=== PATIENT | male | born 1980 | race Caucasian/White ===

== ENCOUNTER 2018-05-28 18:59 | Emergency (ER) | payer BC ==
[~2018-05-28] VITALS: Ht 170.2 cm; Wt 89.0 kg
[2018-05-28 18:59] VITALS: BP 119/65
--- NOTE | 2018-05-28 19:01 | ED.ADGEN ---
Adult General Chief Complaint Chief Complaint ".. I was doing yard work.. and tripped on some concrete wire.. and it poked into my hand..." HPI HPI Patient is a 38 year old male who presents with above hx and complaints puncture wound to Rt. palm. Patient denies any neurovascular changes in his hand. Patient had good drama teacher. Site of puncture somewhat tender. Patient is right-hand dominant. Patient denies any history of immunosuppression, specific ill contacts or travel. Patient does not remember his last tetanus vaccination. Chon Test was intact. Review of Systems Review of Systems Constitutional: Denies fever or chills [] Eyes: Denies change in visual acuity, redness, or eye pain [] HENT: Denies nasal congestion or sore throat [] Respiratory: Denies cough or shortness of breath [] Cardiovascular: No additional information not addressed in HPI [] GI: Denies abdominal pain, nausea, vomiting, bloody stools or diarrhea [] : Denies dysuria or hematuria [] Musculoskeletal: Denies back pain or joint pain [] Integument: Denies rash or skin lesions []complaints of puncture wound. Neurologic: Denies headache, focal weakness or sensory changes [] Endocrine: Denies polyuria or polydipsia [] All other systems were reviewed and found to be within normal limits, except as documented in this note. Family History Family History Noncontributory Current Medications Current Medications Current Medications Medications (Trade) Dose Ordered Sig/[facility] Start Time Stop Time Status Last Admin Dose Admin Tetanus/ Diphtheria Toxoids Adsorbed (Tenivac Vial) 0.5 ml ONCE ONCE 05/28/18 19:15 05/28/18 19:16 DC 05/28/18 19:40 0.5 ML Allergies Allergies Allergies Coded Allergies Type Severity Reaction Last Updated Verified No Known Drug Allergies 05/28/18 No Physical Exam Physical Exam Constitutional: Well developed, well nourished, mild distress, non-toxic appearance. [] HENT: Normocephalic, atraumatic, bilateral external ears normal, oropharynx moist, no oral exudates, nose normal. [] Eyes: PERRLA, EOMI, conjunctiva normal, no discharge. [] Neck: Normal range of motion, no tenderness, supple, no stridor. [] Cardiovascular:Heart rate regular rhythm, no murmur [] Lungs & Thorax: Bilateral breath sounds equal at apexes with a few scattered wheezes on auscultation [] Abdomen: Bowel sounds normal, soft, no tenderness, no masses, no pulsatile masses. [] Skin: Warm, dry, no erythema, no rash. [] Back: No tenderness, no CVA tenderness. [] Extremities: No tenderness, no cyanosis, no clubbing, ROM intact, no edema. [] Except findings of puncture wound Neurologic: Alert and oriented X 3, normal motor function, normal sensory function, no focal deficits noted. [] Psychologic: Affect normal, judgement normal, mood normal. [] Current Patient Data Vital Signs Vital Signs Date Time Temp Pulse Resp B/P (MAP) Pulse Ox O2 Delivery O2 Flow Rate FiO2 05/28/18 18:59 98.2 52 18 97 Room Air EKG EKG [] Radiology/Procedures Radiology/Procedures [] Course & Med Decision Making Course & Med Decision Making Pertinent Labs and Imaging studies reviewed. (See chart for details) Puncture wound wash with surgical soap and water extensively. Wound irrigated. Dressing applied. Patient take ibuprofen and Tylenol as needed for pain. Patient massage while of Polysporin 4 times a day. Patient warned of puncture wound could result in infection. And it must be monitored closely. Patient monitor closely for infection. Patient's tetanus is updated. Patient return of any concerns. [] Final Impression Final Impression 1. Puncture Wound[] right hand palm Dragon Disclaimer Dragon Disclaimer This electronic medical record was generated, in whole or in part, using a voice recognition dictation system. PRINCESS DYER MD May 28, 2018 19:01
[2018-05-28] MEDS ORDERED: TETANUS AND DIPHTHERIA TOX/PF 0.5 ML VIAL. VAX IM ONE (19:15)
== END 2018-05-28 19:45 | disposition home or self-care (01) ==
LOC: ER 18:59
DX: S61.431A Puncture wound without foreign body of right hand, initial encounter (principal); W01.0XXA Fall on same level from slipping, tripping and stumbling without subsequent striking against object, initial encounter; Y93.89 Activity, other specified; Y99.8 Other external cause status; Y92.096 Garden or yard of other non-institutional residence as the place of occurrence of the external cause
CPT/HCPCS: 90471; 90714; 99283-25

== ENCOUNTER 2019-10-10 19:07 | Emergency (ER) | payer BC ==
[~2019-10-10] VITALS: Ht 170.2 cm; Wt 90.7 kg
[2019-10-10 19:07] VITALS: BP 127/82
[2019-10-10] MEDS ORDERED: FLUORESCEIN 1MG EYE STRIP. ONE (19:21)
[2019-10-10] MEDS ORDERED: TETRACAINE 0.5% OPHTH SOLUTION 4ML BOTTLE. ONE (19:21)
--- NOTE | 2019-10-10 19:54 | PHYS DOC ---
Past History Past Medical History: No Pertinent History Past Surgical History: No Surgical History Smoking: Non-smoker Alcohol Use: Occasionally Drug Use: None Adult General Chief Complaint Chief Complaint: EYE PROBLEMS HPI HPI Patient is a 39-year-old male presents complaining of left eye foreign body sensation since approximately 3:15 this afternoon. Patient was climbing into his dear stand when it felt like something got into his eye. Unable to get it out. No change in vision. He does not wear glasses or contact lenses. No photophobia. There is some watery drainage. No previous history of eye injury or surgery. No metal on metal pounding.[] Review of Systems Review of Systems Constitutional: Denies fever or chills [] Eyes: See history of present illness[] HENT: Denies nasal congestion or sore throat [] Respiratory: Denies cough or shortness of breath [] Cardiovascular: No chest pain or palpitations[] GI: Denies abdominal pain, nausea, vomiting, bloody stools or diarrhea [] : Denies dysuria or hematuria [] Musculoskeletal: Denies back pain or joint pain [] Integument: Denies rash or skin lesions [] Neurologic: Denies headache, focal weakness or sensory changes [] Endocrine: Denies polyuria or polydipsia [] All other systems were reviewed and found to be within normal limits, except as documented in this note. Current Medications Current Medications Current Medications Medications (Trade) Dose Ordered Sig/[facility] Start Time Stop Time Status Last Admin Dose Admin Fluorescein Sodium (Ful-Kait 1mg) 1 strip STK-MED ONCE 10/10/19 19:21 10/10/19 19:21 DC Tetracaine HCl (Tetracaine) 40 drop STK-MED ONCE 10/10/19 19:21 10/10/19 19:21 DC Allergies Allergies Allergies Coded Allergies Type Severity Reaction Last Updated Verified No Known Drug Allergies 05/28/18 No Physical Exam Physical Exam Constitutional: Well developed, well nourished, no acute distress, non-toxic appearance. [] HENT: Normocephalic, atraumatic, bilateral external ears normal, oropharynx moist, no oral exudates, nose normal. [] Eyes: PERRLA, EOMI, left conjunctival injection, watery discharge is present, no discharge from right eye. Fundus is normal. No foreign body identified. No increased uptake with fluorescein, negative Josiah's sign. No foreign body identified with sweeping with a moistened cotton swabs. [] Neck: Normal range of motion, no tenderness, supple, no stridor. [] Cardiovascular:Heart rate regular rhythm, no murmur [] Lungs & Thorax: Bilateral breath sounds clear to auscultation [] Abdomen: Not examined. [] Skin: Warm, dry, no erythema, no rash. [] Back: No tenderness, no CVA tenderness. [] Extremities: No tenderness, no cyanosis, no clubbing, ROM intact, no edema. [] Neurologic: Alert and oriented X 3, normal motor function, normal sensory function, no focal deficits noted. [] Psychologic: Affect normal, judgement normal, mood normal. [] Current Patient Data Vital Signs Vital Signs Date Time Temp Pulse Resp B/P (MAP) Pulse Ox O2 Delivery O2 Flow Rate FiO2 10/10/19 19:07 97.9 82 18 82 Room Air EKG EKG [] Radiology/Procedures Radiology/Procedures [] Course & Med Decision Making Course & Med Decision Making Pertinent Labs and Imaging studies reviewed. (See chart for details) Emergency department course: Patient arrived, was placed in bed, and tolerated exam well. Alcaine was placed in his left eye with good pain improvement. Exam findings are noted above. There was no foreign body identified on sweeping the fornices. Patient then had approximately 650 mL of saline irrigated across the eye. Erythromycin ophthalmic ointment was administered. His visual acuity prior to this was noted to be 20/20 left eye, right eye, and bilaterally. He was discharged in improved condition after discussing findings and plan with the patient. All questions were answered. Medical decision making: There is no evidence of a retained foreign body. No foreign body was identified. This may have been blinked out spontaneously. No evidence of central retinal artery or vein occlusion, no globe rupture.[] Dragon Disclaimer Dragon Disclaimer This electronic medical record was generated, in whole or in part, using a voice recognition dictation system. Departure Departure: Impression: Primary Impression: Foreign body, eye Disposition: 01 HOME, SELF-CARE Condition: IMPROVED Referrals: BUZZ DALAL MD (PCP) Follow-up in 2 days Patient Instructions: Eye - Foreign Body Additional Instructions: Follow-up with your regular doctor in 2 days. Take the medication as prescribed. Return to the ER if worsening pain, worsening vision, purulent drainage, or any other concerns. Scripts [erythromycin eye oin] No Conflict Check 1 LUKASZ OS Q4HRS W/A for eye foreign body for 5 Days, #3.5 ML Prov: YESENIA DIAZ DO 10/10/19 Ibuprofen (IBUPROFEN) 800 Mg Tablet 1 TAB PO TID for pain, #30 TAB Prov: YESENIA DIAZ DO 10/10/19 Problem Qualifiers Primary Impression: Foreign body, eye Encounter type: initial encounter Laterality: left Qualified Codes: T15.92XA - Foreign body on external eye, part unspecified, left eye, initial encounter YESENIA DIAZ DO Oct 10, 2019 19:54
[2019-10-10] MEDS ORDERED: TETRACAINE 0.5% OPHTH SOLUTION 4ML BOTTLE. OS ONE (20:30)
[2019-10-10] MEDS ORDERED: ERYTHROMYCIN 0.5% OPHTH OINTMENT 1GM TUBE. OS ONE (20:30)
[2019-10-10] MEDS ORDERED: FLUORESCEIN 1MG EYE STRIP. OS ONE (20:30)
[2019-10-10] MEDS ORDERED: IV NORMAL SALINE 1,000ML 1,000 ML IV ONE (20:30)
[2019-10-10] MEDS ORDERED: ERYTHROMYCIN EYE OIN OS (20:37)
[2019-10-10] MEDS ORDERED: IBUP800T19 PO (20:37)
== END 2019-10-10 20:50 | disposition home or self-care (01) ==
LOC: ER 19:07
DX: T15.92XA Foreign body on external eye, part unspecified, left eye, initial encounter (principal); X58.XXXA Exposure to other specified factors, initial encounter; Y93.89 Activity, other specified; Y92.89 Other specified places as the place of occurrence of the external cause; Y99.8 Other external cause status
CPT/HCPCS: 99283; 99284; J7030